=== PATIENT | female | born 1985 | race Two or more races ===

== ENCOUNTER 2016-04-04 19:20 | Emergency (ER) | payer MEDICAID, OTHER ==
[~2016-04-04] VITALS: Ht 162.6 cm; Wt 81.6 kg
[2016-04-04 20:19] LABS: Basophils # (auto) 0 uL; Basophils % (auto) 0.2 % (0.0-2.0); Eosinophils # (auto) 0.1 uL; Eosinophils % (auto) 1.3 % (0.0-7.0); Hematocrit 42.3 % (36.0-46.0); Hemoglobin 14.1 g/dL (12.2-16.2); Lymphocytes # (auto) 1.4 uL; Lymphocytes % (auto) 26.1 % (10.0-50.0); Mean Corpuscular Hemoglobin 30.2 pg (28.0-32.0); Mean Corpuscular Hgb Conc. 33.3 g/dL (32.0-36.0); Mean Corpuscular Volume 90.6 fL (80.0-100.0); Mean Platelet Volume 7.8 fL (7.4-10.4); Monocytes # (auto) 0.5 uL; Monocytes % (auto) 8.8 % (0.0-12.0); Neutrophils # (auto) 3.4 uL; Neutrophils % (auto) 63.6 % (37.0-80.0); Platelet Count (auto) 244 10^3/uL (140-450); Red Cell Distribution Width 12.2 % (11.6-16.0); White Blood Cell 5.4 10^3/uL (4.4-10.8)
[2016-04-04 20:24] LABS: Urine Bilirubin Negative (Negative); Urine Blood Negative /uL (Negative); Urine Color Yellow (Yellow); Urine Glucose Normal (Normal); Urine Ketone Negative (Negative); Urine Nitrite Negative (Negative); Urine RBC 1 /hpf (0 - 4); Urine Squamous Epithelial Cell FEW /hpf (<5); Urine Urobilinogen Normal (Negative)
[2016-04-04 20:30] LABS: Albumin 3.9 g/dL (3.4-5.0); BUN/Creatinine Ratio 14.5; Calcium 8.3 mg/dL (8.5-10.1); Potassium 4.1 mmol/L (3.5-5.1)
[2016-04-04 20:33] LABS: Bilirubin, Total 0.2 mg/dL (0.2-1.0); Total Protein 7.4 g/dL (6.4-8.2)
[2016-04-04 20:34] LABS: INR 0.97 (0.9-1.15); Partial Thromboplastin Time 28.1 sec (22.64-33.71)
[2016-04-04] MEDS ORDERED: CALCIUM CARB 500 MG CHEW TAB PO ONE (22:45)
[2016-04-04 22:52] VITALS: BP 113/68
[2016-04-04] MEDS ORDERED: HYDROcodone-ACET 5/325MG TAB PO ONE (23:00)
== END 2016-04-04 23:47 | disposition home or self-care (01) ==
LOC: ER 19:23
DX: J32.9 Chronic sinusitis, unspecified (principal); R53.1 Weakness; N39.0 Urinary tract infection, site not specified; E83.51 Hypocalcemia; R55 Syncope and collapse; J45.909 Unspecified asthma, uncomplicated; F17.210 Nicotine dependence, cigarettes, uncomplicated; F12.10 Cannabis abuse, uncomplicated; R07.9 Chest pain, unspecified; R42 Dizziness and giddiness; Z90.710 Acquired absence of both cervix and uterus
CPT/HCPCS: 36415; 71010; 80053; 81001; 81025; 85025; 85610; 85730; 87400; 93005

== ENCOUNTER 2018-04-12 19:33 | Emergency (ER) | payer MEDICAID ==
[~2018-04-12] VITALS: Ht 162.6 cm; Wt 84.8 kg
[2018-04-12 20:26] LABS: Basophils # (auto) 0 uL; Basophils % (auto) 0.2 % (0.0-2.0); Eosinophils # (auto) 0.1 uL; Eosinophils % (auto) 1.4 % (0.0-7.0); Hematocrit 40.9 % (36.0-46.0); Lymphocytes % (auto) 26.2 % (10.0-50.0); Mean Corpuscular Hemoglobin 30.3 pg (28.0-32.0); Mean Corpuscular Hgb Conc. 34.3 g/dL (32.0-36.0); Mean Corpuscular Volume 88.2 fL (80.0-100.0); Monocytes # (auto) 0.6 uL; Monocytes % (auto) 7.6 % (0.0-12.0); Neutrophils # (auto) 4.9 uL; Neutrophils % (auto) 64.6 % (37.0-80.0); Platelet Count (auto) 298 10^3/uL (140-450); Red Blood Cells 4.64 10^6/uL (4.0-5.20); Red Cell Distribution Width 12.6 % (11.8-14.3); White Blood Cell 7.6 10^3/uL (4.4-10.8)
[2018-04-12 20:37] LABS: Albumin 3.6 g/dL (3.4-5.0); Amylase 39 U/L (25-115); Anion Gap 3 (5-15); Blood Urea Nitrogen 7 mg/dL (7-18); Calcium 8.3 mg/dL (8.5-10.1); Carbon Dioxide 26 mmol/L (21-32); Chloride 111 mmol/L (98-107); Glucose 91 mg/dL (74-106); Lipase 108 U/L (73-393); Potassium 3.9 mmol/L (3.5-5.1); Sodium 140 mmol/L (136-145)
[2018-04-12 20:41] LABS: Alanine Aminotransferase 50 U/L (13-56); Alkaline Phosphatase 74 U/L (45-117); Aspartate Aminotransferase 30 U/L (15-37); BUN/Creatinine Ratio 10.9; Bilirubin, Total 0.4 mg/dL (0.2-1.0); GFR African American > 60 mL/min; GFR Non-African American > 60 mL/min; Total Protein 6.7 g/dL (6.4-8.2)
[2018-04-12 20:49] LABS: Urine Amorphous Crystal FEW /hpf (None Seen); Urine Bacteria FEW /hpf (None Seen); Urine Blood Negative /uL (Negative); Urine Mucus FEW (None Seen); Urine Specific Gravity 1.021 (1.001-1.035); Urine WBC 10 /hpf (0 - 5)
[2018-04-13] MEDS ORDERED: MORPHINE SULFATE 10 MG/ML INJ 1ML SDV IM ONE (01:45)
[2018-04-13] MEDS ORDERED: ONDANSETRON HCL 4 MG/2 ML VIAL IM ONE (01:45)
[2018-04-13 02:49] VITALS: BP 99/60
== END 2018-04-13 04:37 | disposition home or self-care (01) ==
LOC: ER 19:33
DX: K80.20 Calculus of gallbladder without cholecystitis without obstruction (principal); N39.0 Urinary tract infection, site not specified; F17.210 Nicotine dependence, cigarettes, uncomplicated; F12.10 Cannabis abuse, uncomplicated; J45.909 Unspecified asthma, uncomplicated; Z90.710 Acquired absence of both cervix and uterus
CPT/HCPCS: 36415; 74176; 80053; 81001; 81025; 82150; 83690; 85025; 96372; 99284; J2270; J2405